=== PATIENT | male | born 1960 | race Caucasian/White ===

== ENCOUNTER 2022-10-11 22:27 | Observation (INO) | payer OTHER ==
[~2022-10-11] VITALS: Ht 175.3 cm; Wt 67.0 kg
[~2022-10-11 22:27] MED LIST: ATENOLOL25 MG PO; CEPHALEXIN500 MG PO; CHERATUSSIN PO; HYDROCHLOROT25 MG PO; KEFLEX500 MG OR; MEDDOSEPAK PO; NAPROSYN500 MG PO; PROVENTIL HFA IN; ZITHROMAX250 MG PO
[2022-10-11 22:40] VITALS: BP 134/114
[2022-10-11] MEDS ORDERED: ALBUTEROL SUL0.083 % IN (22:50)
[2022-10-11] MEDS ORDERED: SPIRIVA IN (22:50)
[2022-10-11] MEDS ORDERED: VENTOLIN HFA108 MCG (22:51)
[2022-10-11] MEDS ORDERED: [UNRECOGNIZED DRUG - REMARK] (22:52)
[2022-10-11 23:01] VITALS: BP 120/85
[2022-10-11 23:01] LABS: BASO% 0.1 % (0-3); EOS% 0.8 % (0-8); IMMATURE GRANULOCYTES 0.7 % (0.0-5.0); LYMPH% 15.6 % (15-41); MEAN CORPUSCULAR HGB CONC 33.2 g/dL CAL (32.0-36.0); NEUT# 13.75 thou/uL (1.82-7.42); NEUT% 72.8 % (42-76); RED BLOOD COUNT 2.38 mill/uL (4.70-6.10); RED CELL DISTRI WIDTH 15.9 % (11.5-15.5)
[2022-10-11 23:11] LABS: HEMATOCRIT 24.4 % (39.0-50.0); HEMOGLOBIN 8.1 g/dl (14.0-18.0); MEAN CELL VOLUME 102.5 fL CALC (80.0-100.0)
[2022-10-11 23:13] LABS: ANION GAP 10 (6-22 (CALC)); BUN 11 mg/dL (8-23); BUN/CREATININE RATIO 9 (12-20 (CALC)); CARBON DIOXIDE 27 mmol/l (22-30); CHLORIDE 88 mmol/l (95-108); CREATININE 1.2 mg/dL (0.7-1.3); GFR FOR AFR.AMER. > 60 ML/MIN (>=60 (CALC)); GFR OTHER RACES > 60 ML/MIN (>=60 (CALC)); POTASSIUM 3.3 mmol/l (3.5-5.1); SODIUM 122 mmol/l (137-146); TOTAL PROTEIN 6.3 g/dL (6.3-8.2)
[2022-10-11 23:15] LABS: ALBUMIN 2.6 g/dL (3.2-5.0); ALKALINE PHOSPHATASE 128 u/l (38-126); BILIRUBIN, TOTAL 1.5 mg/dL (0.2-1.3); SGOT/AST 155 u/l (19-48)
[2022-10-11 23:30] VITALS: BP 139/89
[2022-10-12] VITALS (14 sets, daily range): BP systolic 121–170; BP diastolic 66–100
[2022-10-12 11:25] LABS: BASO% 0.1 % (0-3); IMMATURE GRANULOCYTES 0.9 % (0.0-5.0); LYMPH% 7.3 % (15-41); MEAN CORPUSCULAR HGB 33.7 pG CALC (26.0-32.0); MEAN CORPUSCULAR HGB CONC 32.4 g/dL CAL (32.0-36.0); MONO% 2.8 % (2-13); NEUT# 10.32 thou/uL (1.82-7.42); NEUT% 88.9 % (42-76); RED BLOOD COUNT 2.02 mill/uL (4.70-6.10); RED CELL DISTRI WIDTH 16.3 % (11.5-15.5)
[2022-10-12 11:33] LABS: ALBUMIN 2.1 g/dL (3.2-5.0); ALKALINE PHOSPHATASE 97 u/l (38-126); ANION GAP 9 (6-22 (CALC)); BUN 14 mg/dL (8-23); BUN/CREATININE RATIO 12 (12-20 (CALC)); CARBON DIOXIDE 25 mmol/l (22-30); CHLORIDE 93 mmol/l (95-108); CREATININE 1.2 mg/dL (0.7-1.3); GFR FOR AFR.AMER. > 60 ML/MIN (>=60 (CALC)); GFR OTHER RACES > 60 ML/MIN (>=60 (CALC)); POTASSIUM 3.7 mmol/l (3.5-5.1); SGOT/AST 126 u/l (19-48); SODIUM 124 mmol/l (137-146); TOTAL PROTEIN 5.1 g/dL (6.3-8.2)
[2022-10-12 11:36] LABS: HEMOGLOBIN 6.8 g/dl (14.0-18.0)
[2022-10-12] MEDS ORDERED: FUROSEMIDE20 MG PO (11:37)
[2022-10-12] MEDS ORDERED: LISINOPRIL20 M1 PO (11:37)
[2022-10-12] MEDS ORDERED: TENORMIN100 MG PO (11:38)
[2022-10-12] MEDS ORDERED: B-121000 MC1 PO (11:38)
[2022-10-12 12:37] LABS: INTERNATIONAL NORMALIZED RATIO 1.5 RATIO (0.7-1.3); PROTHROMBIN TIME 14.4 SECONDS (9.0-12.5)
[2022-10-13 00:06] VITALS: BP 158/91
[2022-10-13 04:24] VITALS: BP 151/93
[2022-10-13 05:21] LABS: BASO% 0.1 % (0-3); HEMATOCRIT 24.1 % (39.0-50.0); HEMOGLOBIN 7.9 g/dl (14.0-18.0); IMMATURE GRANULOCYTES 0.8 % (0.0-5.0); LYMPH% 7.1 % (15-41); MEAN CORPUSCULAR HGB 33.8 pG CALC (26.0-32.0); MEAN CORPUSCULAR HGB CONC 32.8 g/dL CAL (32.0-36.0); NEUT# 13.54 thou/uL (1.82-7.42); RED BLOOD COUNT 2.34 mill/uL (4.70-6.10); RED CELL DISTRI WIDTH 16.7 % (11.5-15.5)
[2022-10-13 05:41] LABS: ALBUMIN 2.2 g/dL (3.2-5.0); ALKALINE PHOSPHATASE 90 u/l (38-126); ANION GAP 5 (6-22 (CALC)); BILIRUBIN, TOTAL 1.3 mg/dL (0.2-1.3); BUN 17 mg/dL (8-23); BUN/CREATININE RATIO 13 (12-20 (CALC)); CARBON DIOXIDE 29 mmol/l (22-30); CHLORIDE 97 mmol/l (95-108); CREATININE 1.3 mg/dL (0.7-1.3); GFR FOR AFR.AMER. > 60 ML/MIN (>=60 (CALC)); GFR OTHER RACES 56 ML/MIN (>=60 (CALC)); POTASSIUM 3.5 mmol/l (3.5-5.1); SGOT/AST 143 u/l (19-48); SODIUM 127 mmol/l (137-146); TOTAL PROTEIN 5.3 g/dL (6.3-8.2)
[2022-10-13 07:51] VITALS: BP 141/78
[2022-10-13 16:08] VITALS: BP 145/83
[2022-10-13 18:44] VITALS: BP 138/80
[2022-10-14] VITALS (10 sets, daily range): BP systolic 150–198; BP diastolic 91–100
[2022-10-14 05:12] LABS: BASO% 0.1 % (0-3); HEMATOCRIT 25.9 % (39.0-50.0); HEMOGLOBIN 8.3 g/dl (14.0-18.0); IMMATURE GRANULOCYTES 0.6 % (0.0-5.0); LYMPH% 6.6 % (15-41); MEAN CELL VOLUME 104.9 fL CALC (80.0-100.0); MEAN CORPUSCULAR HGB 33.6 pG CALC (26.0-32.0); MONO% 4.4 % (2-13); NEUT# 11.31 thou/uL (1.82-7.42); NEUT% 88.3 % (42-76); RED BLOOD COUNT 2.47 mill/uL (4.70-6.10); RED CELL DISTRI WIDTH 16.8 % (11.5-15.5)
[2022-10-14 05:32] LABS: ALBUMIN 2.4 g/dL (3.2-5.0); ALKALINE PHOSPHATASE 93 u/l (38-126); ANION GAP 5 (6-22 (CALC)); BUN 23 mg/dL (8-23); BUN/CREATININE RATIO 17 (12-20 (CALC)); CARBON DIOXIDE 29 mmol/l (22-30); CHLORIDE 100 mmol/l (95-108); CREATININE 1.4 mg/dL (0.7-1.3); GFR FOR AFR.AMER. > 60 ML/MIN (>=60 (CALC)); GFR OTHER RACES 52 ML/MIN (>=60 (CALC)); MAGNESIUM 1.7 mg/dL (1.6-2.3); POTASSIUM 3.5 mmol/l (3.5-5.1); SGOT/AST 148 u/l (19-48); SODIUM 130 mmol/l (137-146); TOTAL PROTEIN 5.6 g/dL (6.3-8.2)
[2022-10-14 05:34] LABS: BILIRUBIN, TOTAL 0.6 mg/dL (0.2-1.3)
[2022-10-15 00:51] VITALS: BP 164/87
[2022-10-15 05:05] VITALS: BP 184/100
[2022-10-15 05:15] VITALS: BP 184/100
[2022-10-15 05:58] LABS: BASO% 0.2 % (0-3); HEMOGLOBIN 8.6 g/dl (14.0-18.0); IMMATURE GRANULOCYTES 0.9 % (0.0-5.0); LYMPH% 6.7 % (15-41); MEAN CELL VOLUME 106.7 fL CALC (80.0-100.0); MEAN CORPUSCULAR HGB CONC 31.9 g/dL CAL (32.0-36.0); MONO% 5.3 % (2-13); NEUT# 10.31 thou/uL (1.82-7.42); NEUT% 86.9 % (42-76); RED BLOOD COUNT 2.53 mill/uL (4.70-6.10); RED CELL DISTRI WIDTH 16.4 % (11.5-15.5)
[2022-10-15 06:08] LABS: ALBUMIN 2.3 g/dL (3.2-5.0); ALKALINE PHOSPHATASE 87 u/l (38-126); ANION GAP 7 (6-22 (CALC)); BILIRUBIN, TOTAL 0.7 mg/dL (0.2-1.3); BUN 23 mg/dL (8-23); BUN/CREATININE RATIO 18 (12-20 (CALC)); CARBON DIOXIDE 31 mmol/l (22-30); CHLORIDE 102 mmol/l (95-108); CREATININE 1.3 mg/dL (0.7-1.3); GFR FOR AFR.AMER. > 60 ML/MIN (>=60 (CALC)); GFR OTHER RACES 56 ML/MIN (>=60 (CALC)); MAGNESIUM 1.7 mg/dL (1.6-2.3); POTASSIUM 3.5 mmol/l (3.5-5.1); SGOT/AST 147 u/l (19-48); SODIUM 136 mmol/l (137-146); TOTAL PROTEIN 5.4 g/dL (6.3-8.2)
[2022-10-15 06:40] VITALS: BP 183/101
[2022-10-15 08:16] VITALS: BP 176/91
[2022-10-15] MEDS ORDERED: AMLODIPINE BESYL5 MG PO (09:50)
[2022-10-15] MEDS ORDERED: MEDDOSEPAK PO (09:51)
[2022-10-15] MEDS ORDERED: DOXYCYCLINE100 MG PO (09:53)
[2022-10-15 11:13] VITALS: BP 166/99
== END 2022-10-15 13:12 | DRG 191 ==
LOC: ED 22:27 → ED-I 22:40 → ED 10-12 00:14 → MS2 10-12 00:15
PROVIDERS: Emergency Medicine; Nurse Practitioner Family; ADMIT Internal Medicine; ATTEND Internal Medicine
PROC: 30233N1 Transfusion of Nonautologous Red Blood Cells into Peripheral Vein, Percutaneous Approach (ICD-10-PCS; principal; 2022-10-12)
DX: J44.1 Chronic obstructive pulmonary disease with (acute) exacerbation (principal); E87.1 Hypo-osmolality and hyponatremia; D64.9 Anemia, unspecified; R19.5 Other fecal abnormalities; I10 Essential (primary) hypertension; F10.20 Alcohol dependence, uncomplicated; K70.30 Alcoholic cirrhosis of liver without ascites; F17.210 Nicotine dependence, cigarettes, uncomplicated; Z20.822 Contact with and (suspected) exposure to COVID-19
CPT/HCPCS: P9016; S0164

== ENCOUNTER 2022-11-10 20:55 | Emergency (ER) | payer OTHER ==
[~2022-11-10] VITALS: Ht 175.3 cm; Wt 68.0 kg
[2022-11-10] VITALS (8 sets, daily range): BP systolic 96–123; BP diastolic 63–88
[~2022-11-10 20:55] MED LIST changes: +ALBUTEROL SUL0.083 % IN; +AMLODIPINE BESYL5 MG PO; +B-121000 MC1 PO; +DOXYCYCLINE100 MG PO; +FUROSEMIDE20 MG PO; +LISINOPRIL20 M1 PO; +SPIRIVA IN; +TENORMIN100 MG PO; +VENTOLIN HFA108 MCG; +[UNRECOGNIZED DRUG - REMARK]
[2022-11-10 22:36] LABS: BASO% 0.4 % (0-3); IMMATURE GRANULOCYTES 1.2 % (0.0-5.0); LYMPH% 18.5 % (15-41); MEAN CELL VOLUME 103.1 fL CALC (80.0-100.0); MEAN CORPUSCULAR HGB 33.5 pG CALC (26.0-32.0); MEAN CORPUSCULAR HGB CONC 32.5 g/dL CAL (32.0-36.0); MONO% 15.3 % (2-13); NEUT# 6.6 thou/uL (1.82-7.42); NEUT% 63.6 % (42-76); RED BLOOD COUNT 1.94 mill/uL (4.70-6.10); RED CELL DISTRI WIDTH 14.4 % (11.5-15.5)
[2022-11-10 22:43] LABS: HEMOGLOBIN 6.5 g/dl (14.0-18.0)
[2022-11-10 22:48] LABS: INTERNATIONAL NORMALIZED RATIO 1.5 RATIO (0.7-1.3); PROTHROMBIN TIME 14.3 SECONDS (9.0-12.5)
[2022-11-10 22:49] LABS: ALBUMIN 2.1 g/dL (3.2-5.0); ALKALINE PHOSPHATASE 108 u/l (38-126); BILIRUBIN, TOTAL 0.8 mg/dL (0.2-1.3); BUN 13 mg/dL (8-23); BUN/CREATININE RATIO 10 (12-20 (CALC)); CARBON DIOXIDE 26 mmol/l (22-30); CHLORIDE 94 mmol/l (95-108); CREATININE 1.3 mg/dL (0.7-1.3); GFR FOR AFR.AMER. > 60 ML/MIN (>=60 (CALC)); GFR OTHER RACES 56 ML/MIN (>=60 (CALC)); POTASSIUM 3.7 mmol/l (3.5-5.1); SGOT/AST 54 u/l (19-48); TOTAL PROTEIN 5.2 g/dL (6.3-8.2)
[2022-11-10 22:51] LABS: ANION GAP 7 (6-22 (CALC)); SODIUM 123 mmol/l (137-146)
[2022-11-11 00:05] VITALS: BP 111/79
[2022-11-11 00:06] VITALS: BP 111/79
== END 2022-11-11 00:06 | DRG 552 ==
LOC: ED 20:55
PROVIDERS: Family Medicine
PROC: 30233N1 Transfusion of Nonautologous Red Blood Cells into Peripheral Vein, Percutaneous Approach (ICD-10-PCS; principal; 2022-11-10)
DX: S32.029A Unspecified fracture of second lumbar vertebra, initial encounter for closed fracture (principal); E87.1 Hypo-osmolality and hyponatremia; D64.9 Anemia, unspecified; K74.60 Unspecified cirrhosis of liver; J44.9 Chronic obstructive pulmonary disease, unspecified; I10 Essential (primary) hypertension; F17.200 Nicotine dependence, unspecified, uncomplicated; W19.XXXA Unspecified fall, initial encounter; Y92.009 Unspecified place in unspecified non-institutional (private) residence as the place of occurrence of the external cause; Z91.81 History of falling; Z99.81 Dependence on supplemental oxygen
CPT/HCPCS: P9016

== ENCOUNTER 2023-01-09 14:05 | Emergency (ER) | payer OTHER ==
[~2023-01-09] VITALS: Ht 175.3 cm; Wt 58.9 kg
[2023-01-09 14:10] VITALS: BP 144/87
[2023-01-09 14:15] VITALS: BP 136/88
[2023-01-09 14:30] VITALS: BP 144/87
[2023-01-09 14:45] VITALS: BP 145/91
[2023-01-09 15:08] VITALS: BP 141/92
== END 2023-01-09 14:55 | disposition home or self-care (01) ==
LOC: ED 14:05
DX: S90.821A Blister (nonthermal), right foot, initial encounter (principal); I10 Essential (primary) hypertension; J44.9 Chronic obstructive pulmonary disease, unspecified; K74.60 Unspecified cirrhosis of liver; F17.200 Nicotine dependence, unspecified, uncomplicated; X58.XXXA Exposure to other specified factors, initial encounter

== ENCOUNTER 2023-03-12 15:11 | Emergency (ER) | payer OTHER ==
[~2023-03-12] VITALS: Ht 175.3 cm; Wt 63.5 kg
[2023-03-12 15:52] LABS: EOS% 1.7 % (0-8); HEMATOCRIT 30.7 % (39.0-50.0); HEMOGLOBIN 9.7 g/dl (14.0-18.0); IMMATURE GRANULOCYTES 0.4 % (0.0-5.0); LYMPH% 30.8 % (15-41); MEAN CELL VOLUME 107.7 fL CALC (80.0-100.0); MEAN CORPUSCULAR HGB CONC 31.6 g/dL CAL (32.0-36.0); MONO% 9.2 % (2-13); NEUT# 6.48 thou/uL (1.82-7.42); NEUT% 56.9 % (42-76); RED BLOOD COUNT 2.85 mill/uL (4.70-6.10); RED CELL DISTRI WIDTH 13.5 % (11.5-15.5)
[2023-03-12 16:08] LABS: ALBUMIN 2.4 g/dL (3.2-5.0); ALKALINE PHOSPHATASE 155 u/l (38-126); ANION GAP 12 (6-22 (CALC)); BILIRUBIN, TOTAL 0.5 mg/dL (0.2-1.3); BUN 13 mg/dL (8-23); BUN/CREATININE RATIO 13 (12-20 (CALC)); CARBON DIOXIDE 23 mmol/l (22-30); CHLORIDE 102 mmol/l (95-108); GFR FOR AFR.AMER. > 60 ML/MIN (>=60 (CALC)); GFR OTHER RACES > 60 ML/MIN (>=60 (CALC)); INTERNATIONAL NORMALIZED RATIO 1.4 RATIO (0.7-1.3); LIPASE 15 u/l (23-300); POTASSIUM 4.2 mmol/l (3.5-5.1); PROTHROMBIN TIME 12.8 SECONDS (9.0-12.5); SGOT/AST 76 u/l (19-48); SODIUM 133 mmol/l (137-146); TOTAL PROTEIN 6.1 g/dL (6.3-8.2)
[2023-03-12 23:27] VITALS: BP 143/75
== END 2023-03-12 23:27 | disposition short-term general hospital (02) ==
LOC: ED 15:11
PROVIDERS: Nurse Practitioner
DX: K74.60 Unspecified cirrhosis of liver (principal); R18.8 Other ascites; J44.9 Chronic obstructive pulmonary disease, unspecified; D64.9 Anemia, unspecified; I10 Essential (primary) hypertension; F17.200 Nicotine dependence, unspecified, uncomplicated

== ENCOUNTER 2023-05-10 09:03 | Emergency (ER) | payer OTHER ==
[~2023-05-10] VITALS: Ht 175.3 cm; Wt 62.3 kg
[2023-05-10] VITALS (23 sets, daily range): BP systolic 128–182; BP diastolic 76–117
[~2023-05-10 09:03] MED LIST changes: +ALDACTONE25 MG PO; +PREDNISONE10 MG PO
[2023-05-10 09:34] LABS: EOS% 2.5 % (0-8); IMMATURE GRANULOCYTES 0.2 % (0.0-5.0); LYMPH% 18.7 % (15-41); MEAN CELL VOLUME 106.6 fL CALC (80.0-100.0); MEAN CORPUSCULAR HGB 33.7 pG CALC (26.0-32.0); MEAN CORPUSCULAR HGB CONC 31.6 g/dL CAL (32.0-36.0); NEUT# 7.5 thou/uL (1.82-7.42); NEUT% 70.6 % (42-76); RED BLOOD COUNT 2.73 mill/uL (4.70-6.10); RED CELL DISTRI WIDTH 15.3 % (11.5-15.5)
[2023-05-10 09:37] LABS: HEMATOCRIT 29.1 % (39.0-50.0); HEMOGLOBIN 9.2 g/dl (14.0-18.0)
[2023-05-10 10:02] LABS: ALKALINE PHOSPHATASE 124 u/l (38-126); ANION GAP 6 (6-22 (CALC)); BUN 12 mg/dL (8-23); BUN/CREATININE RATIO 11 (12-20 (CALC)); CARBON DIOXIDE 27 mmol/l (22-30); CHLORIDE 109 mmol/l (95-108); CREATININE 1.1 mg/dL (0.7-1.3); GFR FOR AFR.AMER. > 60 ML/MIN (>=60 (CALC)); GFR OTHER RACES > 60 ML/MIN (>=60 (CALC)); POTASSIUM 3.6 mmol/l (3.5-5.1); SGOT/AST 45 u/l (19-48); SODIUM 138 mmol/l (137-146); TOTAL PROTEIN 6.3 g/dL (6.3-8.2)
[2023-05-10 10:14] LABS: ALBUMIN 2.7 g/dL (3.2-5.0)
== END 2023-05-10 16:54 | disposition home or self-care (01) | DRG 948 ==
LOC: ED 09:03
PROVIDERS: Family Medicine
DX: R18.8 Other ascites (principal); E88.09 Other disorders of plasma-protein metabolism, not elsewhere classified; K74.60 Unspecified cirrhosis of liver; Z72.0 Tobacco use
CPT/HCPCS: P9047; Q9967

== ENCOUNTER 2023-05-17 22:09 | Observation (INO) | payer OTHER ==
[~2023-05-17] VITALS: Ht 175.3 cm; Wt 58.4 kg
[~2023-05-17 22:09] MED LIST changes: +SPIRIVA HANDIH18 MCG PO; -SPIRIVA IN; -VENTOLIN HFA108 MCG; +VENTOLIN HFA108 MCG IN
[2023-05-17 22:30] VITALS: BP 138/81
[2023-05-17 22:45] VITALS: BP 123/84
[2023-05-17 23:00] VITALS: BP 128/82
[2023-05-17 23:15] VITALS: BP 130/78
[2023-05-17 23:30] VITALS: BP 129/72
[2023-05-17 23:45] VITALS: BP 111/70
[2023-05-18] VITALS (15 sets, daily range): BP systolic 99–122; BP diastolic 54–86
[2023-05-18 00:43] LABS: ALBUMIN 2.2 g/dL (3.2-5.0); ALKALINE PHOSPHATASE 96 u/l (38-126); BUN 18 mg/dL (8-23); BUN/CREATININE RATIO 16 (12-20 (CALC)); CHLORIDE 113 mmol/l (95-108); CREATININE 1.1 mg/dL (0.7-1.3); GFR FOR AFR.AMER. > 60 ML/MIN (>=60 (CALC)); GFR OTHER RACES > 60 ML/MIN (>=60 (CALC)); SGOT/AST 58 u/l (19-48); SODIUM 136 mmol/l (137-146); TOTAL PROTEIN 5.4 g/dL (6.3-8.2)
[2023-05-18 00:44] LABS: ANION GAP 7 (6-22 (CALC)); CARBON DIOXIDE 21 mmol/l (22-30); POTASSIUM 5.1 mmol/l (3.5-5.1)
[2023-05-18 00:58] LABS: BASO% 1.1 % (0-3); EOS% 2.6 % (0-8); IMMATURE GRANULOCYTES 0.2 % (0.0-5.0); LYMPH% 27.7 % (15-41); MEAN CELL VOLUME 106.4 fL CALC (80.0-100.0); MEAN CORPUSCULAR HGB 33.5 pG CALC (26.0-32.0); MEAN CORPUSCULAR HGB CONC 31.5 g/dL CAL (32.0-36.0); MONO% 9.4 % (2-13); NEUT# 5.23 thou/uL (1.82-7.42); RED BLOOD COUNT 2.03 mill/uL (4.70-6.10); RED CELL DISTRI WIDTH 15.6 % (11.5-15.5)
[2023-05-18 01:00] LABS: HEMATOCRIT 21.6 % (39.0-50.0); HEMOGLOBIN 6.8 g/dl (14.0-18.0)
[2023-05-18] MEDS ORDERED: MELOXICAM7.5 MG PO (02:06)
[2023-05-18 06:46] LABS: EOS% 2.8 % (0-8); HEMOGLOBIN 7.9 g/dl (14.0-18.0); IMMATURE GRANULOCYTES 0.3 % (0.0-5.0); LYMPH% 37.6 % (15-41); MEAN CORPUSCULAR HGB 33.2 pG CALC (26.0-32.0); MEAN CORPUSCULAR HGB CONC 31.6 g/dL CAL (32.0-36.0); NEUT# 3.94 thou/uL (1.82-7.42); NEUT% 49.3 % (42-76); RED BLOOD COUNT 2.38 mill/uL (4.70-6.10); RED CELL DISTRI WIDTH 16.5 % (11.5-15.5)
[2023-05-18] MEDS ORDERED: TENORMIN100 MG PO (10:48)
[2023-05-18 13:00] LABS: ALBUMIN 1.9 g/dL (3.2-5.0); ALKALINE PHOSPHATASE 83 u/l (38-126); ANION GAP 5 (6-22 (CALC)); BILIRUBIN, TOTAL 1.9 mg/dL (0.2-1.3); BUN 19 mg/dL (8-23); BUN/CREATININE RATIO 16 (12-20 (CALC)); CARBON DIOXIDE 22 mmol/l (22-30); CHLORIDE 114 mmol/l (95-108); CREATININE 1.2 mg/dL (0.7-1.3); GFR FOR AFR.AMER. > 60 ML/MIN (>=60 (CALC)); GFR OTHER RACES > 60 ML/MIN (>=60 (CALC)); POTASSIUM 4.3 mmol/l (3.5-5.1); SGOT/AST 43 u/l (19-48); SODIUM 136 mmol/l (137-146)
[2023-05-18 23:09] LABS: BASO% 0.8 % (0-3); EOS% 2.1 % (0-8); HEMATOCRIT 24.5 % (39.0-50.0); HEMOGLOBIN 7.6 g/dl (14.0-18.0); IMMATURE GRANULOCYTES 0.1 % (0.0-5.0); MEAN CELL VOLUME 105.2 fL CALC (80.0-100.0); MEAN CORPUSCULAR HGB 32.6 pG CALC (26.0-32.0); MONO% 9.9 % (2-13); NEUT# 4.46 thou/uL (1.82-7.42); NEUT% 57.1 % (42-76); RED BLOOD COUNT 2.33 mill/uL (4.70-6.10); RED CELL DISTRI WIDTH 16.9 % (11.5-15.5)
[2023-05-19 00:17] VITALS: BP 90/55
[2023-05-19 04:54] VITALS: BP 102/69
[2023-05-19 05:03] LABS: HEMATOCRIT 23.9 % (39.0-50.0); HEMOGLOBIN 7.6 g/dl (14.0-18.0); MEAN CELL VOLUME 105.3 fL CALC (80.0-100.0); MEAN CORPUSCULAR HGB 33.5 pG CALC (26.0-32.0); MEAN CORPUSCULAR HGB CONC 31.8 g/dL CAL (32.0-36.0); RED BLOOD COUNT 2.27 mill/uL (4.70-6.10); RED CELL DISTRI WIDTH 16.9 % (11.5-15.5)
[2023-05-19 05:13] LABS: ALBUMIN 1.7 g/dL (3.2-5.0); ALKALINE PHOSPHATASE 79 u/l (38-126); ANION GAP 6 (6-22 (CALC)); BUN 20 mg/dL (8-23); BUN/CREATININE RATIO 16 (12-20 (CALC)); CARBON DIOXIDE 21 mmol/l (22-30); CHLORIDE 114 mmol/l (95-108); CREATININE 1.3 mg/dL (0.7-1.3); GFR FOR AFR.AMER. > 60 ML/MIN (>=60 (CALC)); GFR OTHER RACES 56 ML/MIN (>=60 (CALC)); MAGNESIUM 1.6 mg/dL (1.6-2.3); SGOT/AST 37 u/l (19-48); SODIUM 137 mmol/l (137-146); TOTAL PROTEIN 4.6 g/dL (6.3-8.2)
[2023-05-19 05:17] LABS: BILIRUBIN, TOTAL 0.7 mg/dL (0.2-1.3)
[2023-05-19 07:20] VITALS: BP 111/70
[2023-05-19 10:48] VITALS: BP 109/73
[2023-05-19 15:49] VITALS: BP 123/79
[2023-05-19 19:35] VITALS: BP 122/66
[2023-05-20 01:00] VITALS: BP 103/74
[2023-05-20 04:01] VITALS: BP 100/67
[2023-05-20 06:20] LABS: HEMATOCRIT 25.1 % (39.0-50.0); HEMOGLOBIN 7.8 g/dl (14.0-18.0); MEAN CELL VOLUME 105.9 fL CALC (80.0-100.0); MEAN CORPUSCULAR HGB 32.9 pG CALC (26.0-32.0); MEAN CORPUSCULAR HGB CONC 31.1 g/dL CAL (32.0-36.0); RED BLOOD COUNT 2.37 mill/uL (4.70-6.10); RED CELL DISTRI WIDTH 16.1 % (11.5-15.5)
[2023-05-20 06:51] LABS: ALBUMIN 1.9 g/dL (3.2-5.0); ALKALINE PHOSPHATASE 83 u/l (38-126); ANION GAP 7 (6-22 (CALC)); BUN 18 mg/dL (8-23); BUN/CREATININE RATIO 13 (12-20 (CALC)); CARBON DIOXIDE 20 mmol/l (22-30); CHLORIDE 115 mmol/l (95-108); CREATININE 1.3 mg/dL (0.7-1.3); GFR FOR AFR.AMER. > 60 ML/MIN (>=60 (CALC)); GFR OTHER RACES 56 ML/MIN (>=60 (CALC)); MAGNESIUM 1.4 mg/dL (1.6-2.3); POTASSIUM 3.8 mmol/l (3.5-5.1); SGOT/AST 35 u/l (19-48); SODIUM 138 mmol/l (137-146); TOTAL PROTEIN 4.8 g/dL (6.3-8.2)
[2023-05-20 06:52] VITALS: BP 105/67
[2023-05-20 06:53] LABS: BILIRUBIN, TOTAL 0.3 mg/dL (0.2-1.3)
[2023-05-20 11:16] VITALS: BP 130/79
[2023-05-20] MEDS ORDERED: PROTONIX40 MG PO (12:05)
[2023-05-20 14:31] VITALS: BP 140/93
== END 2023-05-20 15:10 | disposition home health service (06) | DRG 434 ==
LOC: ED 22:09 → ED-I 05-18 00:40 → ED 05-18 01:04 → MS2 05-18 01:05
PROVIDERS: Family Medicine; Student in an Organized Health Care Education/Training Program; ADMIT Internal Medicine; ATTEND Internal Medicine
PROC: 30233N1 Transfusion of Nonautologous Red Blood Cells into Peripheral Vein, Percutaneous Approach (ICD-10-PCS; principal; 2023-05-18)
PROC: 0W9G3ZZ Drainage of Peritoneal Cavity, Percutaneous Approach (ICD-10-PCS; 2023-05-18)
PROC: 0W9G3ZZ Drainage of Peritoneal Cavity, Percutaneous Approach (ICD-10-PCS; 2023-05-20)
DX: K70.31 Alcoholic cirrhosis of liver with ascites (principal); D64.9 Anemia, unspecified; I10 Essential (primary) hypertension; J44.9 Chronic obstructive pulmonary disease, unspecified; E88.09 Other disorders of plasma-protein metabolism, not elsewhere classified; K59.00 Constipation, unspecified; F17.210 Nicotine dependence, cigarettes, uncomplicated
CPT/HCPCS: P9016

== ENCOUNTER 2023-05-31 08:50 | Emergency (ER) | payer OTHER ==
[~2023-05-31] VITALS: Ht 175.3 cm; Wt 58.0 kg
[2023-05-31] VITALS (10 sets, daily range): BP systolic 114–160; BP diastolic 81–93
[~2023-05-31 08:50] MED LIST changes: +MELOXICAM7.5 MG PO; +PROTONIX40 MG PO
[2023-05-31 10:38] LABS: BASO% 1.1 % (0-3); EOS% 1.8 % (0-8); HEMATOCRIT 30.7 % (39.0-50.0); HEMOGLOBIN 9.5 g/dl (14.0-18.0); IMMATURE GRANULOCYTES 0.4 % (0.0-5.0); MEAN CELL VOLUME 108.5 fL CALC (80.0-100.0); MEAN CORPUSCULAR HGB 33.6 pG CALC (26.0-32.0); MEAN CORPUSCULAR HGB CONC 30.9 g/dL CAL (32.0-36.0); MONO% 8.9 % (2-13); NEUT# 6.24 thou/uL (1.82-7.42); NEUT% 61.8 % (42-76); RED BLOOD COUNT 2.83 mill/uL (4.70-6.10)
[2023-05-31 10:56] LABS: INTERNATIONAL NORMALIZED RATIO 1.4 RATIO (0.7-1.3); PROTHROMBIN TIME 13.4 SECONDS (9.0-12.5)
[2023-05-31 11:01] LABS: ALKALINE PHOSPHATASE 105 u/l (38-126); ANION GAP 8 (6-22 (CALC)); BUN 12 mg/dL (8-23); BUN/CREATININE RATIO 11 (12-20 (CALC)); CARBON DIOXIDE 18 mmol/l (22-30); CHLORIDE 111 mmol/l (95-108); CREATININE 1.1 mg/dL (0.7-1.3); GFR FOR AFR.AMER. > 60 ML/MIN (>=60 (CALC)); GFR OTHER RACES > 60 ML/MIN (>=60 (CALC)); LIPASE 16 u/l (23-300); POTASSIUM 4.2 mmol/l (3.5-5.1); SGOT/AST 50 u/l (19-48); SODIUM 133 mmol/l (137-146); TOTAL PROTEIN 5.7 g/dL (6.3-8.2)
[2023-05-31 11:02] LABS: ALBUMIN 2.3 g/dL (3.2-5.0)
[2023-05-31 11:54] LABS: URINE BILIRUBIN - DIPSTICK Negative (NEGATIVE); URINE BLOOD DIPSTICK Negative (NEGATIVE); URINE GLUCOSE - DIPSTICK Negative (NEGATIVE); URINE KETONE Negative (NEGATIVE); URINE LEUK ESTERASE Negative (NEGATIVE); URINE NITRITE - DIPSTICK Negative (Negative); URINE PH 5.5 (4.5-8.0); URINE PROTEIN - DIPSTICK Negative (NEG-TRACE); URINE SPECIFIC GRAVITY 1.025; URINE UROBILINOGEN - DIPSTICK 0.2 E.U./dL (0.2)
[2023-05-31 12:01] LABS: URINE COLOR Yellow
== END 2023-05-31 14:02 | disposition home or self-care (01) | DRG 434 ==
LOC: ED 08:50
PROVIDERS: Family Medicine
PROC: 0W9G3ZZ Drainage of Peritoneal Cavity, Percutaneous Approach (ICD-10-PCS; principal; 2023-05-31)
DX: K70.31 Alcoholic cirrhosis of liver with ascites (principal); I10 Essential (primary) hypertension; J44.9 Chronic obstructive pulmonary disease, unspecified; F17.210 Nicotine dependence, cigarettes, uncomplicated; Z20.822 Contact with and (suspected) exposure to COVID-19

== ENCOUNTER 2023-06-02 09:53 | Inpatient (IN) | payer OTHER ==
[2023-06-02] VITALS (17 sets, daily range): BP systolic 99–150; BP diastolic 73–88
[~2023-06-02] VITALS: Ht 175.3 cm; Wt 56.4 kg
--- NOTE | 2023-06-02 09:53 | NUR ---
PT ARRIVED VIA EMS, MEET AT ENTRANCE, TRANSFERED TO WEIGH BED, PT A&O X 3, NAD NOTED, RBS 72 PER EMS, PT TAKEN IMMEDIATELY TO CT, CT BRAIN DONE [phone], TELE NEURO DR. LEDESMA AT [phone] DONE WITH [facility] OF (5), NURSE TCRN GIVEN REPORT AND TOOK OVER CARE OF PT.
--- NOTE | 2023-06-02 10:07 | NUR ---
TELENUROLOGY CONSULT IN PROGRESS
[2023-06-02 10:37] LABS: BASO% 1.1 % (0-3); EOS% 1.4 % (0-8); HEMATOCRIT 30.1 % (39.0-50.0); HEMOGLOBIN 9.5 g/dl (14.0-18.0); IMMATURE GRANULOCYTES 0.5 % (0.0-5.0); LYMPH% 26.5 % (15-41); MEAN CELL VOLUME 106.7 fL CALC (80.0-100.0); MEAN CORPUSCULAR HGB 33.7 pG CALC (26.0-32.0); MEAN CORPUSCULAR HGB CONC 31.6 g/dL CAL (32.0-36.0); MONO% 9.4 % (2-13); NEUT# 6.78 thou/uL (1.82-7.42); NEUT% 61.1 % (42-76); RED BLOOD COUNT 2.82 mill/uL (4.70-6.10); RED CELL DISTRI WIDTH 14.9 % (11.5-15.5)
[2023-06-02 10:50] LABS: ALBUMIN 2.3 g/dL (3.2-5.0); ALKALINE PHOSPHATASE 130 u/l (38-126); ANION GAP 7 (6-22 (CALC)); BILIRUBIN, TOTAL 0.6 mg/dL (0.2-1.3); BUN 13 mg/dL (8-23); BUN/CREATININE RATIO 10 (12-20 (CALC)); CALCULATED LDLCHOLESTEROL 8 mg/dL (62-129 (CALC)); CARBON DIOXIDE 20 mmol/l (22-30); CHLORIDE 112 mmol/l (95-108); CHOLESTEROL HDL RATIO 1.3 (<4.4 (CALC)); CREATININE 1.3 mg/dL (0.7-1.3); GFR FOR AFR.AMER. > 60 ML/MIN (>=60 (CALC)); GFR OTHER RACES 56 ML/MIN (>=60 (CALC)); HDL CHOLESTEROL 53 mg/dL (39.0-59.0); POTASSIUM 4.3 mmol/l (3.5-5.1); SGOT/AST 55 u/l (19-48); SODIUM 135 mmol/l (137-146); TOTAL CHOLESTEROL 68 mg/dl (0-199); TOTAL PROTEIN 5.9 g/dL (6.3-8.2); TOTAL TRIGLYCERIDES 41 mg/dl (0-149); VLDL CHOLESTROL 8 mg/dl (4-45 (CALC))
[2023-06-02 10:54] LABS: INTERNATIONAL NORMALIZED RATIO 1.3 RATIO (0.7-1.3); PROTHROMBIN TIME 12.7 SECONDS (9.0-12.5)
--- NOTE | 2023-06-02 11:10 | NUR ---
CENTRAL LINE PLACEMENT IN PROGRESS.
--- NOTE | 2023-06-02 11:28 | NUR ---
CENTRAL LINE COMPLETED AT THIS TIME, AWAITING CXR
[2023-06-02] MEDS ORDERED: ALDACTONE25 MG PO (11:34)
--- NOTE | 2023-06-02 13:53 | NUR ---
Reassessment of patient completed. No distress noted.
[2023-06-02 14:53] LABS: URINE BLOOD DIPSTICK Negative (NEGATIVE); URINE GLUCOSE - DIPSTICK Negative (NEGATIVE); URINE KETONE Negative (NEGATIVE); URINE LEUK ESTERASE Negative (NEGATIVE); URINE NITRITE - DIPSTICK Negative (Negative); URINE PH 5.5 (4.5-8.0); URINE PROTEIN - DIPSTICK Negative (NEG-TRACE); URINE UROBILINOGEN - DIPSTICK 0.2 E.U./dL (0.2)
[2023-06-02 14:54] LABS: URINE COLOR Yellow
--- NOTE | 2023-06-02 14:58 | NUR ---
ATTEMPT TO CALL REPORT TO ICU
--- NOTE | 2023-06-02 15:28 | NUR ---
PATIENT RESTING, COMPLETED 65% OF TRAY OFFERED. DENIES ANY FURTHER NEEDS AT THIS TIME.
--- NOTE | 2023-06-02 15:42 | NUR ---
CALL FROM ICU DIRECTOR PATIENT WILL HOLD AT THIS TIME.
--- NOTE | 2023-06-02 15:50 | NUR ---
PATIENT REQUESTING ICE CREAM, NURSE WILL FOLLOW UP
--- NOTE | 2023-06-02 16:54 | NUR ---
PATIENT OFFERED 1 SUGAR FREE VANILLA ICE CREAM REQUESTED.
--- NOTE | 2023-06-02 16:55 | NUR ---
Reassessment of patient completed. No distress noted.
--- NOTE | 2023-06-02 17:07 | NUR ---
NURSE TO NURSE COMPLETED REPORT GIVEN TO MICHELLE CHOE
--- NOTE | 2023-06-02 17:40 | NUR ---
PATIENT TAKEN TO ICU
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
--- NOTE | 2023-06-02 19:00 | NUR ---
BEDSIDE [facility] COMPLETED.
--- NOTE | 2023-06-02 19:00 | NUR ---
REPORT RECEIVED FROM OFF GOING NURSE.
--- NOTE | 2023-06-02 20:00 | NUR ---
PATIENT NOTED NEEDING MUCH ATTENTION. HE HAS CALLED MULTIPLE TIMES SINCE THE START OF SHIFT FOR MULTIPLE MISC THINGS, SUCH PULL HIS COVERS OVER HIS SHOULDERS. HE STATED HE CANNOT MOVE DUE TO THE RIJ. ASSESSMENT COMPLETE (SEE INTERVENTIONS. VSS. WILL CONTINUE TO MONITOR.
--- NOTE | 2023-06-02 22:00 | NUR ---
NO CHANGES NOTED WILL CONTINUE TO MONITOR.
[2023-06-03] VITALS (7 sets, daily range): BP systolic 120–142; BP diastolic 64–95
--- NOTE | 2023-06-03 | NUR ---
REPORT RECEIVED FROM OFFGOING NURSE.
--- NOTE | 2023-06-03 | NUR ---
REPORT GIVEN TO ONCOMING NURSE. BEDSIDE NIH COMPLETED.
--- NOTE | 2023-06-03 00:14 | NUR ---
PATIENT LYING IN BED. ASSESSMENT COMPLETED. ALERT AND ORIENTED X 3. NIH COMPLETED WITH OFFGOING NURSE. R/L ARM DRIFT NOTED, R LEG DRIFT NOTED, AND SENSORY LOSS NOTED ON R SIDE FOR NIH OF 4. . DENIES PAIN AT THIS TIME. BREATHING EVEN AND UNLABORED ON 2L NC. STATES HE USES OXYGEN AT 2L AT HOME. ABDOMEN SOFT, BUT DISTENDED. LUNGS CLEAR/DIMINISHED TO ASCULTATION. STRONG PERIPHERAL PULSES. LAST BM 06/02. PATIENT STATES HE LIVES AT HOME WITH FAMILY MEMBER. SAFETY MEASURES IN PLACE INCLUDING BED IN LOW POSITION AND CALL LIGHT NEXT TO L ARM. WILL CONTINUE WITH PLAN OF CARE.
--- NOTE | 2023-06-03 00:21 | NUR ---
PATIENT REQUESTED TO BE "LEFT ALONE" IF THIS SALES SUPERINTENDENT COMES IN AND FINDS HIM ASLEEP. PATIENT INFORMED OF NIH STROKE SCALE AND ITS IMPORTANCE. PATIENT VERBALIZED UNDERSTANDING. BUT AGAIN REQUESTED THAT IF THIS SALES SUPERINTENDENT COMES IN AT 0400 "AND I AM ASLEEP, PLEASE LEAVE ME ALONE".
--- NOTE | 2023-06-03 02:07 | NUR ---
PATIENT UP TO BEDSIDE COMMODE. SR ON THE MONITOR. NO APPARENT DISTRESS NOTED. WILL CONTINUE WITH PLAN OF CARE.
--- NOTE | 2023-06-03 02:48 | NUR ---
PATIENT COMPLAINING ABOUT CARDIAC MONITORING. EDUCATED ON THE IMPORTANCE OF MONITORING. PATIENT VERBALIZED UNDERSTANDING AND STATED HE WOULD "KEEP IT ON FOR NOW, BUT IF I GET TANGLED AGAIN I WANT IT OFF".
--- NOTE | 2023-06-03 04:02 | NUR ---
PATIENT APPEARS TO BE RESTING WITH EYES CLOSED. PER PATIENT REQUEST, HE WAS "LEFT ALONE". SAFETY MEASURES IN PLACE. WILL CONTINUE WITH PLAN OF CARE.
--- NOTE | 2023-06-03 04:17 | NUR ---
PATIENT DEMANDING PAIN MEDICATION FOR BACK/NECK PAIN. RIJ DRESSING CHANGED PER PATIENT'S REQUEST "BECAUSE IT'S PULLING MY SKIN". STATES RELIEF AFTER CHANGE. PATIENT OFFERED REPOSITIONING WITH PILLOWS, DECLINED CONTINUING TO DEMAND PAIN MEDICATION. PROVIDER NOTIFIED.
[2023-06-03 05:02] LABS: ALBUMIN 1.9 g/dL (3.2-5.0); ALKALINE PHOSPHATASE 96 u/l (38-126); ANION GAP 4 (6-22 (CALC)); BILIRUBIN, TOTAL 0.7 mg/dL (0.2-1.3); BUN 14 mg/dL (8-23); BUN/CREATININE RATIO 11 (12-20 (CALC)); CARBON DIOXIDE 23 mmol/l (22-30); CHLORIDE 112 mmol/l (95-108); CREATININE 1.3 mg/dL (0.7-1.3); GFR FOR AFR.AMER. > 60 ML/MIN (>=60 (CALC)); GFR OTHER RACES 56 ML/MIN (>=60 (CALC)); MAGNESIUM 1.7 mg/dL (1.6-2.3); POTASSIUM 4.1 mmol/l (3.5-5.1); SGOT/AST 44 u/l (19-48); SODIUM 135 mmol/l (137-146); TOTAL PROTEIN 4.9 g/dL (6.3-8.2)
--- NOTE | 2023-06-03 05:33 | NUR ---
PER RR IN LAB, PATIENT'S HGB 6.3. COMMERCIAL DRONE SOFTWARE DEVELOPER TO REDRAW LAB. WILL CONTACT PROVIDER SHOULD NEW DRAW SHOW CRITICAL RESULTS.
--- NOTE | 2023-06-03 06:00 | NUR ---
PATIENT APPEARS TO BE RESTING WITH EYES CLOSED. NO APPARENT DISTRESS NOTED. WILL CONTINUE WITH PLAN OF CARE.
--- NOTE | 2023-06-03 06:10 | NUR ---
LAB AT BEDSIDE TO REDRAW [facility]
[2023-06-03 06:29] LABS: HEMATOCRIT 25.7 % (39.0-50.0); HEMOGLOBIN 8.1 g/dl (14.0-18.0); MEAN CELL VOLUME 106.6 fL CALC (80.0-100.0); MEAN CORPUSCULAR HGB 33.6 pG CALC (26.0-32.0); MEAN CORPUSCULAR HGB CONC 31.5 g/dL CAL (32.0-36.0); RED BLOOD COUNT 2.41 mill/uL (4.70-6.10); RED CELL DISTRI WIDTH 14.9 % (11.5-15.5)
--- NOTE | 2023-06-03 06:32 | NUR ---
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 pt complaint of over all pain thru the night, toradol was given. nihs score remains the same thruout the night. pt alert/oriented x3, vital signs stable.
--- NOTE | 2023-06-03 08:09 | NUR ---
helped pt pull down his sweatpants which he refuses to take off, to use urinal and noticed a large bruise with small skin tear to right knee, states hit it yesterday. notified
--- NOTE | 2023-06-03 08:46 | NUR ---
pt to ultrasound then to mri for procedures per w/c
--- NOTE | 2023-06-03 10:28 | NUR ---
PT BACK FROM MRI, SITTING UP IN BED, NICOTINE PATCH PLACED ON RIGHT UPPER ARM. FLUIDS INFUSING, PT REMAINS ALERT/ORIENTED X3, MOVES ALL EXTREMETIES WELL.
--- NOTE | 2023-06-03 11:30 | NUR ---
PHYSICAL THERAPY WITH PT. PT UP AND WALKING AROUND WITH WALKER WITH NO PROBLEMS. DENIES ANY DISCOMFORT, NO CHANGE IN NIH SCSCORES AT THIS TIME.
--- NOTE | 2023-06-03 17:24 | NUR ---
pt sitting up in bed, no change in nih, pt talking on phone and watching tv.
[2023-06-04] VITALS (10 sets, daily range): BP systolic 114–151; BP diastolic 73–92
[2023-06-04 05:00] LABS: BASO% 0.2 % (0-3); EOS% 0.2 % (0-8); HEMATOCRIT 22.8 % (39.0-50.0); HEMOGLOBIN 7.4 g/dl (14.0-18.0); IMMATURE GRANULOCYTES 0.2 % (0.0-5.0); LYMPH% 20.2 % (15-41); MEAN CELL VOLUME 107.5 fL CALC (80.0-100.0); MEAN CORPUSCULAR HGB 34.9 pG CALC (26.0-32.0); MEAN CORPUSCULAR HGB CONC 32.5 g/dL CAL (32.0-36.0); MONO% 8.3 % (2-13); NEUT# 9.17 thou/uL (1.82-7.42); NEUT% 70.9 % (42-76); RED BLOOD COUNT 2.12 mill/uL (4.70-6.10); RED CELL DISTRI WIDTH 14.7 % (11.5-15.5)
[2023-06-04 05:17] LABS: ALBUMIN 1.9 g/dL (3.2-5.0); ALKALINE PHOSPHATASE 90 u/l (38-126); ANION GAP 7 (6-22 (CALC)); BUN 16 mg/dL (8-23); BUN/CREATININE RATIO 12 (12-20 (CALC)); CARBON DIOXIDE 21 mmol/l (22-30); CHLORIDE 113 mmol/l (95-108); CREATININE 1.3 mg/dL (0.7-1.3); GFR FOR AFR.AMER. > 60 ML/MIN (>=60 (CALC)); GFR OTHER RACES 56 ML/MIN (>=60 (CALC)); MAGNESIUM 1.7 mg/dL (1.6-2.3); POTASSIUM 4.2 mmol/l (3.5-5.1); SGOT/AST 41 u/l (19-48); SODIUM 137 mmol/l (137-146); TOTAL PROTEIN 5.1 g/dL (6.3-8.2)
[2023-06-04 05:20] LABS: BILIRUBIN, TOTAL 0.3 mg/dL (0.2-1.3)
--- NOTE | 2023-06-04 05:58 | NUR ---
Patient resting in bed with eyes closed with no s/s f distress noted. CVP dressing hanged this am and patient toleated well. Oxygen at 2lnc with o2 sat 99% and no labored breathing noted. continent of b/b and voiding with no complications noted. Abdominal distention noted with no complaints of pain. Will contienue to observe.
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
--- NOTE | 2023-06-04 10:00 | NUR ---
PATIENT SITTING UP IN BED. NO APPARENT DISTRESS NOTED. WILL CONTINUE WITH PLAN OF CARE.
[2023-06-04 11:20] LABS: HEMATOCRIT 25.6 % (39.0-50.0); MEAN CELL VOLUME 108.9 fL CALC (80.0-100.0); MEAN CORPUSCULAR HGB CONC 31.3 g/dL CAL (32.0-36.0); RED BLOOD COUNT 2.35 mill/uL (4.70-6.10); RED CELL DISTRI WIDTH 14.8 % (11.5-15.5)
--- NOTE | 2023-06-04 11:21 | NUR ---
PATIENT'S OXYGEN SATURATION 98% ON ROOM AIR.
--- NOTE | 2023-06-04 13:57 | NUR ---
PATIENT SITTING UP IN BED. NO APPARENT DISTRESS NOTED. WILL CONTINUE WITH PLAN OF CARE.
--- NOTE | 2023-06-04 15:51 | NUR ---
PATIENT TAKEN TO MS 269 VIA WHEELCHAIR WITH OXYGEN. REPORT GIVEN TO DAIJA SINGER.
--- NOTE | 2023-06-04 16:00 | NUR ---
RECEIVED FROM ICU. ALERT ORIENTED. DENIES NEEDS OR PAIN AT THIS TIME. ORIENTED TO UNIT AND CALL JENSEN.
--- NOTE | 2023-06-04 19:20 | NUR ---
PATIENT OBSERVED LAYING IN BED. ALERT AND ORIENTED. ABLE TO MAKE NEEDS KNOWN. ASSESSMENT COMPLETE. NO COMPLAINTS OF PAIN. NO SHORTNESS OF BREATH. OXYGEN VIA NC AT 2L. RIGHT IJ OBSERVED. BLOOD OBSERVED TO 2X2 ON DRESSING. SITE DOES FLUSH AND HAS GOOD BLOOD RETURN. WILL HAVE VEGETABLE PACKER LOOK AT AND WILL ALSO INFORM MD.
--- NOTE | 2023-06-04 21:30 | NUR ---
CALLED BEEF CATTLE FARM WORKER PROVIDER AND INFORMED OF PATIENT COMPLAINING OF PAIN. NEW ORDER RECEIVED. SEE EMAR.
--- NOTE | 2023-06-04 21:30 | NUR ---
ALSO NOTIFIED OF RT IJ SITE WITH BLOOD TO DRESSING. DID INFORM HIM I WOULD HAVE CARDIOPULMONARY TECHNOLOGIST CHIEF LOOK AT IT AND THAT IT DOES FLUSH AND HAVE GOOD BLOOD RETURN.
--- NOTE | 2023-06-04 23:45 | NUR ---
PATIENT REMAINS RESTING IN BED. NO DISTRESS NOTED. NO COMPLAINTS VOICED AT THIS TIME. BED REMAINS IN LOW POSITION. CALL JENSEN IN REACH.
[2023-06-05 00:31] VITALS: BP 114/69
--- NOTE | 2023-06-05 04:25 | NUR ---
PATIENT REMAINS RESTING IN BED. NO DISTRESS NOTED. NO COMPLAINTS OF PAIN. BED REMAINS IN LOW POSITION. CALL JENSEN IN REACH.
[2023-06-05 04:29] VITALS: BP 126/70
[2023-06-05 05:51] LABS: ANION GAP 5 (6-22 (CALC)); BUN 15 mg/dL (8-23); BUN/CREATININE RATIO 13 (12-20 (CALC)); CARBON DIOXIDE 24 mmol/l (22-30); CHLORIDE 112 mmol/l (95-108); CREATININE 1.2 mg/dL (0.7-1.3); GFR FOR AFR.AMER. > 60 ML/MIN (>=60 (CALC)); GFR OTHER RACES > 60 ML/MIN (>=60 (CALC)); POTASSIUM 4.2 mmol/l (3.5-5.1); SODIUM 136 mmol/l (137-146)
--- NOTE | 2023-06-05 06:11 | NUR ---
LAB CALLED TO REDRAW PARKER LUCERO.
[2023-06-05 06:29] LABS: MEAN CELL VOLUME 107.8 fL CALC (80.0-100.0); MEAN CORPUSCULAR HGB 34.3 pG CALC (26.0-32.0); MEAN CORPUSCULAR HGB CONC 31.8 g/dL CAL (32.0-36.0); RED BLOOD COUNT 2.04 mill/uL (4.70-6.10); RED CELL DISTRI WIDTH 14.8 % (11.5-15.5)
--- NOTE | 2023-06-05 07:00 | NUR ---
SHIFT CHANGE REPORT, PT AWAKE ALERT AND ORIENTED RESTING IN BED, O2 @ 2L VIA IN PLACE, TELE MONITOR IN PLACE, NO C/O DISCOMFORT AT THIS TIME, ASSISTED TO BR AND BACK TO BED, SETTLE IN BED AT THIS TIME.
[2023-06-05 07:20] VITALS: BP 134/84
--- NOTE | 2023-06-05 10:04 | NUR ---
PT'S MOTHER CALLED REQUESTING NOT TO SEND IM BACK HOME, CM NOTIFIED.
[2023-06-05] MEDS ORDERED: ASPIRIN 81 LOW81 MG PO (10:05)
[2023-06-05 11:16] VITALS: BP 126/74
--- NOTE | 2023-06-07 11:26 | NUR ---
Discharge follow up call completed 06/07/23. Pt states he is improving slowly, but moving in the right direction. Pt is taking a baby aspirin each day as directed. Pt has not been agle to reach his PCP yet but will continue trying to schedule a follow up appointment. No needs or concerns verbalized by patient at this time.
== END 2023-06-05 14:09 | disposition home health service (06) | DRG 65 ==
LOC: ED 09:53 → ED-I 10:45 → ED 10:45 → ED-I 13:20 → ED 13:45 → ICU 13:46 → MS2 06-04 16:00
PROVIDERS: Family Medicine; Nurse Practitioner Family; Student in an Organized Health Care Education/Training Program; ADMIT Student in an Organized Health Care Education/Training Program; ATTEND Student in an Organized Health Care Education/Training Program
PROC: 05HM33Z Insertion of Infusion Device into Right Internal Jugular Vein, Percutaneous Approach (ICD-10-PCS; principal; 2023-06-02)
DX: I63.512 Cerebral infarction due to unspecified occlusion or stenosis of left middle cerebral artery (principal); G81.91 Hemiplegia, unspecified affecting right dominant side; R64 Cachexia; Z68.1 Body mass index [BMI] 19.9 or less, adult; R20.2 Paresthesia of skin; R29.705 NIHSS score 5; D53.9 Nutritional anemia, unspecified; I11.0 Hypertensive heart disease with heart failure; I50.9 Heart failure, unspecified; J44.9 Chronic obstructive pulmonary disease, unspecified; E88.09 Other disorders of plasma-protein metabolism, not elsewhere classified; F10.20 Alcohol dependence, uncomplicated; K70.31 Alcoholic cirrhosis of liver with ascites; F17.210 Nicotine dependence, cigarettes, uncomplicated; Z99.81 Dependence on supplemental oxygen; Z20.822 Contact with and (suspected) exposure to COVID-19
CPT/HCPCS: J1650; Q9967

== ENCOUNTER 2023-06-14 11:22 | Emergency (ER) | payer OTHER ==
[~2023-06-14] VITALS: Ht 175.3 cm; Wt 58.0 kg
[~2023-06-14 11:22] MED LIST changes: +ASPIRIN 81 LOW81 MG PO
[2023-06-14 12:33] VITALS: BP 129/90
[2023-06-14 12:46] LABS: EOS% 1.9 % (0-8); IMMATURE GRANULOCYTES 0.2 % (0.0-5.0); LYMPH% 27.4 % (15-41); MEAN CELL VOLUME 106.3 fL CALC (80.0-100.0); MEAN CORPUSCULAR HGB 33.5 pG CALC (26.0-32.0); MEAN CORPUSCULAR HGB CONC 31.5 g/dL CAL (32.0-36.0); MONO% 8.7 % (2-13); NEUT# 6.26 thou/uL (1.82-7.42); NEUT% 60.8 % (42-76); RED BLOOD COUNT 2.72 mill/uL (4.70-6.10); RED CELL DISTRI WIDTH 13.8 % (11.5-15.5)
[2023-06-14 12:52] LABS: HEMATOCRIT 28.9 % (39.0-50.0); HEMOGLOBIN 9.1 g/dl (14.0-18.0)
[2023-06-14 13:01] VITALS: BP 155/98
[2023-06-14 13:02] LABS: INTERNATIONAL NORMALIZED RATIO 1.2 RATIO (0.7-1.3); PROTHROMBIN TIME 11.8 SECONDS (9.0-12.5)
[2023-06-14 13:11] LABS: ALKALINE PHOSPHATASE 126 u/l (38-126); ANION GAP 7 (6-22 (CALC)); BUN 13 mg/dL (8-23); BUN/CREATININE RATIO 14 (12-20 (CALC)); CARBON DIOXIDE 23 mmol/l (22-30); CHLORIDE 110 mmol/l (95-108); GFR FOR AFR.AMER. > 60 ML/MIN (>=60 (CALC)); GFR OTHER RACES > 60 ML/MIN (>=60 (CALC)); POTASSIUM 3.9 mmol/l (3.5-5.1); SGOT/AST 54 u/l (19-48); SODIUM 136 mmol/l (137-146); TOTAL PROTEIN 6.1 g/dL (6.3-8.2)
[2023-06-14 13:32] LABS: ALBUMIN 2.5 g/dL (3.2-5.0)
[2023-06-14 14:21] VITALS: BP 155/98
== END 2023-06-14 14:33 | disposition home or self-care (01) | DRG 433 ==
LOC: ED 11:22
PROVIDERS: Family Medicine
PROC: 0W9G3ZZ Drainage of Peritoneal Cavity, Percutaneous Approach (ICD-10-PCS; principal; 2023-06-14)
DX: K74.60 Unspecified cirrhosis of liver (principal); R18.8 Other ascites; J44.9 Chronic obstructive pulmonary disease, unspecified; F17.200 Nicotine dependence, unspecified, uncomplicated; Z99.81 Dependence on supplemental oxygen

== ENCOUNTER 2023-06-30 08:27 | Emergency (ER) | payer OTHER ==
[~2023-06-30] VITALS: Ht 175.3 cm; Wt 63.0 kg
[2023-06-30 08:35] VITALS: BP 140/88
[2023-06-30] MEDS ORDERED: ASPIRINCHW 81MG PO (08:41)
[2023-06-30 09:00] VITALS: BP 143/92
[2023-06-30 09:13] LABS: BASO% 1.3 % (0-3); EOS% 2.1 % (0-8); HEMATOCRIT 28.8 % (39.0-50.0); HEMOGLOBIN 9.1 g/dl (14.0-18.0); IMMATURE GRANULOCYTES 0.5 % (0.0-5.0); LYMPH% 25.5 % (15-41); MEAN CELL VOLUME 105.5 fL CALC (80.0-100.0); MEAN CORPUSCULAR HGB 33.3 pG CALC (26.0-32.0); MEAN CORPUSCULAR HGB CONC 31.6 g/dL CAL (32.0-36.0); MONO% 12.9 % (2-13); NEUT# 4.62 thou/uL (1.82-7.42); NEUT% 57.7 % (42-76); RED BLOOD COUNT 2.73 mill/uL (4.70-6.10); RED CELL DISTRI WIDTH 13.4 % (11.5-15.5)
[2023-06-30 09:27] LABS: ALBUMIN 2.3 g/dL (3.2-5.0); ALKALINE PHOSPHATASE 123 u/l (38-126); ANION GAP 5 (6-22 (CALC)); BILIRUBIN, TOTAL 0.6 mg/dL (0.2-1.3); BUN 9 mg/dL (8-23); BUN/CREATININE RATIO 10 (12-20 (CALC)); CARBON DIOXIDE 25 mmol/l (22-30); CHLORIDE 109 mmol/l (95-108); CREATININE 0.8 mg/dL (0.7-1.3); GFR FOR AFR.AMER. > 60 ML/MIN (>=60 (CALC)); GFR OTHER RACES > 60 ML/MIN (>=60 (CALC)); POTASSIUM 3.4 mmol/l (3.5-5.1); SGOT/AST 54 u/l (19-48); SODIUM 136 mmol/l (137-146); TOTAL PROTEIN 5.9 g/dL (6.3-8.2)
[2023-06-30 09:30] VITALS: BP 155/86
[2023-06-30 09:31] LABS: INTERNATIONAL NORMALIZED RATIO 1.3 RATIO (0.7-1.3); PROTHROMBIN TIME 12.7 SECONDS (9.0-12.5)
[2023-06-30 10:18] VITALS: BP 152/80
[2023-06-30 10:30] VITALS: BP 162/90
[2023-06-30 10:55] VITALS: BP 162/90
== END 2023-06-30 10:55 | disposition home or self-care (01) | DRG 434 ==
LOC: ED 08:27
PROVIDERS: Family Medicine
PROC: 0W9G3ZZ Drainage of Peritoneal Cavity, Percutaneous Approach (ICD-10-PCS; principal; 2023-06-30)
DX: K70.31 Alcoholic cirrhosis of liver with ascites (principal); J44.9 Chronic obstructive pulmonary disease, unspecified; F17.210 Nicotine dependence, cigarettes, uncomplicated; Z99.81 Dependence on supplemental oxygen